=== PATIENT | male | born 1945 | race Caucasian/White ===

== ENCOUNTER 2017-05-03 15:01 | Emergency (ER) | payer MEDICARE, OTHER ==
[~2017-05-03] VITALS: Ht 182.9 cm; Wt 92.1 kg
[2017-05-03] MEDS ORDERED: [UNRECOGNIZED DRUG - OTHER] (15:44)
[2017-05-03] MEDS ORDERED: ASPIRIN 81 MG CHEW (CHILDREN'S ASA) PO ONE (16:15)
--- NOTE | 2017-05-03 16:16 | ED General ---
General Chief Complaint: General Problems/Pain Stated Complaint: COUGH,BODY ACHES,CHEST TIGHTNESS Nursing Triage Note: AMB TO ROOM REPORTS HAD FLU SYMPTOMS SINCE TUESDAY CON'T TO FEEL WEAK AND TIRED. THIS AM HAD PAIN ACROSS HIS CHEST. NON SINCE. PATIENT CONCERN THAT HE CON'T TO BE TIRED. Nursing Sepsis Screen: No Definite Risk Source of Information: Patient Exam Limitations: No Limitations History of Present Illness Time Seen by Provider: 16:07 Initial Comments Here with report of left-sided chest pain that lasted a few minutes earlier today. Was diagnosed with flu last Tuesday and has been treated for that. He has been coughing quite a bit. States that he continues to be tired. Denies nausea or vomiting. Does admit to coughing and easy fatigue. Seen by PCP today who recommended that he come over for evaluation including EKG. Timing/Duration: 4-5 Days, Other (chest pain only lasted for a few minutes and was an aching pain anterior left-sided without radiation to other areas.) Severity: Moderate Associated Systoms: Chest Pain, Cough, Fever/Chills, Malaise, No Rash Allergies and Home Medications Allergies Coded Allergies: No Known Drug Allergies (Unverified , 05/03/17) Home Medications [Mrloxicam] , (Reported) Constitutional: see HPI, chills, fever, malaise, weakness EENTM: nose congestion, throat pain Respiratory: cough, short of breath Cardiovascular: chest pain, No edema Gastrointestinal: No abdominal pain, No nausea, No vomiting Genitourinary: no symptoms reported Musculoskeletal: see HPI, No joint pain, muscle pain Skin: no symptoms reported All Other Systems Reviewed Negative Unless Noted: Yes Past Feculeg-Iqiryx-Kwycct Hx Patient Social History Alcohol Use: Denies Use Recreational Drug Use: No Smoking Status: Never a Smoker Recent Foreign Travel: No Contact w/Someone Who Travel: No Recent Infectious Disease Expo: No Surgeries History of Surgeries: No Respiratory History of Respiratory Disorde: No Cardiovascular History of Cardiac Disorders: No Neurological History of Neurological Disord: No Genitourinary History of Genitourinary Disor: No Gastrointestinal History of Gastrointestinal Di: No Musculoskeletal History of Musculoskeletal Dis: Yes Musculoskeletal Disorders: Arthritis Endocrine History of Endocrine Disorders: No HEENT History of HEENT Disorders: No Cancer History of Cancer: No Psychosocial History of Psychiatric Problem: No Integumentary History of Skin or Integumenta: No Reviewed Nursing Assessment Reviewed/Agree w Nursing PMH: Yes Physical Exam Vital Signs Vital Sign - Last 12Hours 05/03/17 15:18 Temp 98.0 Pulse 85 Resp 18 B/P (MAP) 131/85 (100) Pulse Ox 97 O2 Delivery Room Air Capillary Refill : Less Than 3 Seconds General Appearance: No Apparent Distress, WD/WN HEENT: PERRL/EOMI, Pharynx Normal Neck: Non Tender, Supple Respiratory: Lungs Clear, Normal Breath Sounds Cardiovascular: Regular Rate, Rhythm, No Murmur Gastrointestinal: Non Tender, Soft Back: Normal Inspection, No CVA Tenderness, No Vertebral Tenderness Extremity: Normal Range of Motion, Non Tender Neurologic/Psychiatric: Alert, Oriented x3 Skin: Normal Color, Warm/Dry Progress/Results/Core Measures Suspected Sepsis Recent Fever Within 48 Hours: No Infection Criteria Present: None New/Unexplained Altered Menta: No Sepsis Screen: No Definite Risk Sepsis Diagnosis: SIRS Temperature:98.0 Pulse: 85 Respiratory Rate: 18 Laboratory Tests 05/03/17 16:30: White Blood Count 4.1L Blood Pressure 131 /85 Mean: 100 Laboratory Tests 05/03/17 16:30: Creatinine 0.97, Platelet Count 151, Total Bilirubin 0.4 Results/Orders Lab Results Laboratory Tests Test 05/03/17 16:30 Range/Units White Blood Count 4.1 L 4.3-11.0 10^3/uL Red Blood Count 5.08 4.35-5.85 10^6/uL Hemoglobin 15.6 13.3-17.7 G/DL Hematocrit 44 40-54 % Mean Corpuscular Volume 87 80-99 FL Mean Corpuscular Hemoglobin 31 25-34 PG Mean Corpuscular Hemoglobin Concent 35 32-36 G/DL Red Cell Distribution Width 13.1 10.0-14.5 % Platelet Count 151 130-400 10^3/uL Mean Platelet Volume 9.3 7.4-10.4 FL Neutrophils (%) (Auto) 66 42-75 % Lymphocytes (%) (Auto) 20 12-44 % Monocytes (%) (Auto) 12 0-12 % Eosinophils (%) (Auto) 2 0-10 % Basophils (%) (Auto) 0 0-10 % Neutrophils # (Auto) 2.7 1.8-7.8 X 10^3 Lymphocytes # (Auto) 0.8 L 1.0-4.0 X 10^3 Monocytes # (Auto) 0.5 0.0-1.0 X 10^3 Eosinophils # (Auto) 0.1 0.0-0.3 10^3/uL Basophils # (Auto) 0.0 0.0-0.1 10^3/uL Sodium Level 138 135-145 MMOL/L Potassium Level 3.9 3.6-5.0 MMOL/L Chloride Level 105 98-107 MMOL/L Carbon Dioxide Level 23 21-32 MMOL/L Anion Gap 10 5-14 MMOL/L Blood Urea Nitrogen 21 H 7-18 MG/DL Creatinine 0.97 0.60-1.30 MG/DL Estimat Glomerular Filtration Rate > 60 BUN/Creatinine Ratio 22 Glucose Level 107 H 70-105 MG/DL Calcium Level 8.5 8.5-10.1 MG/DL Total Bilirubin 0.4 0.1-1.0 MG/DL Aspartate Amino Transf (AST/SGOT) 21 5-34 U/L Alanine Aminotransferase (ALT/SGPT) 23 0-55 U/L Alkaline Phosphatase 82 40-136 U/L Troponin I < 0.30 <0.30 NG/ML Total Protein 6.3 L 6.4-8.2 GM/DL Albumin 3.8 3.2-4.5 GM/DL My Orders Orders - COTY LUND MD Cbc With Automated Diff (05/03/17 16:11) Comprehensive Metabolic Panel (05/03/17 16:11) Troponin I (05/03/17 16:11) Chest Pa/Lat (2 View) (05/03/17 16:11) Ekg Tracing (05/03/17 16:11) Aspirin Chewable Tablet (Baby Aspirin Ch (05/03/17 16:15) Medications Given in ED Current Medications Medications Dose Ordered Sig/Hope Route Start Time Stop Time Status Last Admin Dose Admin Aspirin 324 mg ONCE ONCE PO 05/03/17 16:15 05/03/17 16:16 DC 05/03/17 16:34 324 MG Vital Signs/I&O Vital Sign - Last 12Hours 05/03/17 15:18 Temp 98.0 Pulse 85 Resp 18 B/P (MAP) 131/85 (100) Pulse Ox 97 O2 Delivery Room Air Capillary Refill : Less Than 3 Seconds Blood Pressure Mean: 100 Progress Note : Progress Note Seen and evaluated. Labs, EKG and chest x-ray ordered. ASA 324 mg by mouth given due to report of chest pain. Monitor patient. 1710: No acute findings. Discharged home with return precautions. Patient verbalize understanding instructions and agreement with plan. Patient was instructed to follow-up with his primary care doctor as well as seek cardiology consult as he has never had cardiology evaluation. Patient reported understanding. ECG Initial ECG Impression Date: May 03, 2017 Initial ECG Impression Time: 16:32 Initial ECG Rate: 86 Initial ECG Rhythm: Normal Sinus Initial ECG Comparisson: No Previous ECG Available Comment Sinus rhythm with borderline left axis deviation. No evidence of ST elevation OR. No previous available for comparison. Interpreted by me. Diagnostic Imaging Diagonstic Imaging: Xray Plain Films/CT/US/NM/MRI: chest Comments NAME: GINETTE CONNOLLY MED REC#: [id number] PT STATUS: REG ER : 1945 PHYSICIAN: COTY LUND MD ADMIT DATE: 05/03/17/ER Signed Date of Exam: 05/03/17 CHEST PA/LAT (2 VIEW) INDICATION: Chest pain and chills. PA and lateral views of the chest are obtained. COMPARISON: No previous study is available for comparison at this time. FINDINGS: Heart size and pulmonary vasculature are within normal limits, and the lungs are clear, bilaterally. IMPRESSION: Unremarkable chest. Dictated by: Dictated on workstation # [id number] Dict: 05/03/17 1649 Trans: 05/03/17 1701 Interpreted by: MARIANNA IBANEZ MD Electronically signed by: MARIANNA IBANEZ MD 05/03/17 1701 Departure Impression Impression: Primary Impression: Upper respiratory infection Qualified Codes: J06.9 - Acute upper respiratory infection, unspecified Additional Impression: Chest pain Qualified Codes: R07.9 - Chest pain, unspecified Disposition: 01 HOME, SELF-CARE Condition: Improved Departure-Patient Inst. Decision time for Depature: 17:14 Referrals: TATYANA JURADO MD FACP [facility] Rafa HAWKINS MD, BASHAR J MD SEGLIE, FLOYD R MD (PCP/Family) Primary Care Physician Patient Instructions: Chest Pain (DC), Flu, Adult (DC) Add. Discharge Instructions: All discharge instructions reviewed with patient and/or family. Voiced understanding. Continue home medications as directed. He may also take Tylenol 1000 mg every 6 or 8 hours. Drink plenty of fluids and get plenty of rest. Follow-up with your doctor this week for recheck and further evaluation. You should seek appointment with Dr. Zuluaga or one of the other cardiologists listed for follow- up to have further evaluation regarding chest pain in your heart. Return for worse pain, fever, vomiting, weakness, breathing problems or other concerns as needed. Copy Copies To 1: SERGIO PATEL MD, TIMOTHY D MD May 03, 2017 16:16
[2017-05-03 16:39] LABS: BASOPHILS % (AUTO) 0 % (0-10); EOSINOPHILS # (AUTO) 0.1 10^3/uL (0.0-0.3); EOSINOPHILS % (AUTO) 2 % (0-10); HEMATOCRIT 44 % (40-54); HEMOGLOBIN 15.6 G/DL (13.3-17.7); LYMPHOCYTES # (AUTO) 0.8 X 10^3 (1.0-4.0); LYMPHOCYTES % (AUTO) 20 % (12-44); MEAN CORPUSCULAR HEMOGLOBIN 31 PG (25-34); MEAN CORPUSCULAR HGB CONC 35 G/DL (32-36); MEAN CORPUSCULAR VOLUME 87 FL (80-99); MEAN PLATELET VOLUME 9.3 FL (7.4-10.4); MONOCYTES # (AUTO) 0.5 X 10^3 (0.0-1.0); MONOCYTES % (AUTO) 12 % (0-12); NEUTROPHILS # (AUTO) 2.7 X 10^3 (1.8-7.8); NEUTROPHILS % (AUTO) 66 % (42-75); PLATELET COUNT 151 10^3/uL (130-400); RED BLOOD COUNT 5.08 10^6/uL (4.35-5.85); RED CELL DISTRIBUTION WIDTH 13.1 % (10.0-14.5); WHITE BLOOD COUNT 4.1 10^3/uL (4.3-11.0)
--- NOTE | 2017-05-03 16:52 | Diagnostic Imaging Report ---
INDICATION: Chest pain and chills. PA and lateral views of the chest are obtained. COMPARISON: No previous study is available for comparison at this time. FINDINGS: Heart size and pulmonary vasculature are within normal limits, and the lungs are clear, bilaterally. IMPRESSION: Unremarkable chest. Dictated by: Dictated on workstation # [id number]
[2017-05-03 16:58] LABS: ALANINE AMINOTRANSFERASE 23 U/L (0-55); ALBUMIN 3.8 GM/DL (3.2-4.5); ALKALINE PHOSPHATASE 82 U/L (40-136); BILIRUBIN,TOTAL 0.4 MG/DL (0.1-1.0); BUN/CREATININE RATIO 22; CALCIUM 8.5 MG/DL (8.5-10.1); CARBON DIOXIDE 23 MMOL/L (21-32); CHLORIDE 105 MMOL/L (98-107); CREATININE SERUM 0.97 MG/DL (0.60-1.30); GFR ESTIMATED > 60; GLUCOSE 107 MG/DL (70-105); POTASSIUM 3.9 MMOL/L (3.6-5.0); SODIUM 138 MMOL/L (135-145); TOTAL PROTEIN 6.3 GM/DL (6.4-8.2)
[2017-05-03 17:41] VITALS: BP 134/91
--- OUTSIDE RECORDS SUMMARY | 2017-05-04 11:05 | XMS REPORT ---
Author Author FROYLAN BONILLA [facility] Address Unknown Care Team Providers Care Condominium Manager Name Role Phone FROYLAN BONILLA Unavailable PROBLEMS Type Condition ICD9-CM Code [id number] Code Onset Dates Condition Status SNOMED Code Problem Encounter for dental examination Z01.20 Active [id number] ALLERGIES No Known Allergies SOCIAL HISTORY Never Assessed PLAN OF CARE Activity Details Follow Up prn Reason:PROPHY VITAL SIGNS Blood pressure systolic 132 mmHg 2016-06-01 Blood pressure diastolic 77 mmHg 2016-06-01 MEDICATIONS Medication Instructions Dosage Frequency Start Date End Date Duration Status Meloxicam Active RESULTS No Results PROCEDURES Procedure Date Ordered Result Body Site LTD ORAL EVALUATION - PROBLEM FOCUS Jun 01, 2016 INTRAORL-PERIAPICAL 1 FILM [id number] Jun 01, 2016 IMMUNIZATIONS No Known Immunizations MEDICAL (GENERAL) HISTORY Type Description Date Medical History Arthritis
--- OUTSIDE RECORDS SUMMARY | 2017-05-04 11:05 | XMS REPORT ---
Author Author AMINA PATTON [facility] Address [address] [place] [address] Phone Unavailable Care Team Providers Care Cv Rn Name Role Phone AMINA PATTON Unavailable Unavailable PROBLEMS Type Condition ICD9-CM Code [id number] Code Onset Dates Condition Status SNOMED Code Problem Encounter for dental examination Z01.20 Active [id number] ALLERGIES No Known Allergies SOCIAL HISTORY Never Assessed PLAN OF CARE Activity Details Follow Up kenzie Reason:srp VITAL SIGNS Blood pressure systolic 113 mmHg 2016-08-25 Blood pressure diastolic 70 mmHg 2016-08-25 MEDICATIONS Medication Instructions Dosage Frequency Start Date End Date Duration Status Meloxicam Active RESULTS No Results PROCEDURES Procedure Date Ordered Result Body Site Periodontal scaling and root August 25, 2016 Periodontal scaling and root August 25, 2016 IMMUNIZATIONS No Known Immunizations MEDICAL (GENERAL) HISTORY Type Description Date Medical History Arthritis
== END 2017-05-03 17:41 | disposition home or self-care (01) ==
LOC: EDUNIT# 15:01 → ER 15:04
DX: J06.9 Acute upper respiratory infection, unspecified (principal); R07.89 Other chest pain
CPT/HCPCS: 36415; 71046; 80053; 84484; 85025; 93005

== ENCOUNTER → 2017-05-25 | Outpatient (CLI) | payer MEDICARE, OTHER ==
[~2017-05-25] MED LIST: CATHETER FLUSH 10 ML SYR IV PRN; IOHEXOL 350 MG/ML 150 ML (OMNIPAQUE 350) VIAL IV ONE; NS 250 ML (IVPB) BAG IV ONE; [UNRECOGNIZED DRUG - OTHER]
--- NOTE | 2017-05-25 15:18 | Diagnostic Imaging Report ---
PROCEDURE: CT angiography of the chest with contrast. TECHNIQUE: Multiple contiguous axial images were obtained through the chest after uneventful bolus administration of intravenous contrast. Reconstructed CTA MIP acquisitions were also performed. INDICATION: Upper chest pain and shortness of air. No prior studies are available for comparison. FINDINGS: Evaluation of the pulmonary arterial system is without evidence of thromboembolism. No filling defects are identified within the central, lobar or segmental arterial branches. The thoracic aorta is normal caliber. No dissection is seen. No pericardial or pleural fluid is identified. No axillary, hilar or mediastinal lymphadenopathy is detected. No pulmonary infiltrates, nodules or masses are seen. The upper abdomen is unremarkable. IMPRESSION: No evidence of pulmonary embolism or thoracic aortic dissection. Dictated by: Dictated on workstation # [id number]
== END ==
LOC: RAD 14:35
PROVIDERS: ATTEND Internal Medicine Interventional Cardiology
DX: R07.9 Chest pain, unspecified (principal); R06.02 Shortness of breath; R00.0 Tachycardia, unspecified
CPT/HCPCS: 71275

== ENCOUNTER → 2017-05-26 | Outpatient (CLI) | payer MEDICARE, OTHER ==
[~2017-05-26] VITALS: Ht 182.9 cm; Wt 93.0 kg
[~2017-05-26] MED LIST changes: -IOHEXOL 350 MG/ML 150 ML (OMNIPAQUE 350) VIAL IV ONE; -NS 250 ML (IVPB) BAG IV ONE; +REGADENOSON 0.4 MG/5 ML SYR (LEXISCAN) IV ONE
[2017-05-27 13:26] VITALS: BP 143/73
--- NOTE | 2017-05-27 13:26 | Cardiology Stress Test Report ---
Stress Test Report Type of NM Stress Test: Test Type: LEXISCAN 0.4MG/5ML Date of Procedure/Referring: Date of Procedure: May 26, 2017 PCP Rafa Jones MD Admitting Physician Steven Carter MD Indications: Chest pain Baseline Heart Rate: 79 Baseline Blood Pressure: Blood Pressure Systolic: 143 Blood Pressure Diastolic: 73 Baseline EKG: Baseline EKG: sinus rhythm Summary: This is a 71-year-old gentleman who was brought to the stress lab after informed consent was taken. Lexiscan stress test was performed according to the protocol. 0.4 mg of Lexiscan was given IV. Low-grade exercise was performed. Baseline EKG showed sinus rhythm at 79 bpm and blood pressure 143/ 73 mmHg. Maximum heart rate 136 bpm and blood pressure 195/98 mmHg. Patient did not have any chest pain, EKG changes or arrhythmias. 10.93 mCi of Myoview was given for rest imaging and 31.3 mCi of Myoview was given for stress imaging. TID 1.01. EF 61 percent. Normal wall motion. Normal perfusion during rest and stress imaging. Conclusion: Pharmacological nuclear stress test is negative for ischemia. Hypertensive during the stress test. Normal perfusion imaging during stress and rest. Normal LV function with no wall motion abnormalities. Rafa JONES MD May 27, 2017 13:26
== END ==
LOC: CARD 07:25
PROVIDERS: ATTEND Internal Medicine Interventional Cardiology
DX: R07.9 Chest pain, unspecified (principal); I10 Essential (primary) hypertension; R06.02 Shortness of breath; R00.0 Tachycardia, unspecified
CPT/HCPCS: 78452; 93017

== ENCOUNTER 2017-09-16 10:15 | Emergency (ER) | payer MEDICARE, OTHER ==
[~2017-09-16] VITALS: Ht 180.3 cm; Wt 92.1 kg
[~2017-09-16 10:15] MED LIST changes: -CATHETER FLUSH 10 ML SYR IV PRN; -REGADENOSON 0.4 MG/5 ML SYR (LEXISCAN) IV ONE
--- OUTSIDE RECORDS SUMMARY | 2017-09-16 10:18 | XMS REPORT ---
Author Author FROYLAN BONILLA [facility] Address Unknown Care Team Providers Care Traveling Representative Name Role Phone FROYLAN BONILLA Unavailable PROBLEMS Unknown Problems ALLERGIES No Known Allergies ENCOUNTERS Encounter Location Date Diagnosis [facility] [id number] [place] [address] [id number] Oct, Dental examination Z01.20 [facility] [id number] [place] [address] [id number] Sep, Encounter for dental examination Z01.20 [facility] [id number] [place] [address] [id number] August, Dental examination Z01.20 [facility] [id number] [place] [address] [phone] Jun, Dental examination Z01.20 [facility] [id number] [place] [address] [phone] May, Dental examination Z01.20 IMMUNIZATIONS No Known Immunizations SOCIAL HISTORY Never Assessed REASON FOR VISIT restorative PLAN OF CARE Activity Details Follow Up 4 Months Reason:recall VITAL SIGNS Blood pressure systolic 160 mmHg 2016-11-16 Blood pressure diastolic 78 mmHg 2016-11-16 MEDICATIONS Medication Instructions Dosage Frequency Start Date End Date Duration Status Meloxicam Active RESULTS No Results PROCEDURES Procedure Date Ordered Result Body Site RESIN COMPOS - 3 SURFACES POSTERIOR November 16, 2016 INSTRUCTIONS MEDICATIONS ADMINISTERED No Known Medications MEDICAL (GENERAL) HISTORY Type Description Date Medical History Arthritis
[2017-09-16 10:43] LABS: BASOPHILS % (AUTO) 0 % (0-10); EOSINOPHILS % (AUTO) 1 % (0-10); HEMATOCRIT 36 % (40-54); HEMOGLOBIN 12.6 G/DL (13.3-17.7); LYMPHOCYTES # (AUTO) 0.6 X 10^3 (1.0-4.0); LYMPHOCYTES % (AUTO) 7 % (12-44); MEAN CORPUSCULAR HEMOGLOBIN 31 PG (25-34); MEAN CORPUSCULAR HGB CONC 35 G/DL (32-36); MEAN CORPUSCULAR VOLUME 88 FL (80-99); MEAN PLATELET VOLUME 9.1 FL (7.4-10.4); MONOCYTES # (AUTO) 0.5 X 10^3 (0.0-1.0); MONOCYTES % (AUTO) 6 % (0-12); NEUTROPHILS # (AUTO) 7.4 X 10^3 (1.8-7.8); NEUTROPHILS % (AUTO) 87 % (42-75); PLATELET COUNT 190 10^3/uL (130-400); RED BLOOD COUNT 4.13 10^6/uL (4.35-5.85); RED CELL DISTRIBUTION WIDTH 13.3 % (10.0-14.5); WHITE BLOOD COUNT 8.6 10^3/uL (4.3-11.0)
[2017-09-16] MEDS: NS IV 1000 ML 1,000 ML IV ONE ×2 (10:51→11:40)
[2017-09-16 11:08] LABS: INR 1.2 (0.8-1.4); PROTHROMBIN TIME PATIENT 15.5 SEC (12.2-14.7)
[2017-09-16 11:13] LABS: EOSINOPHILS % (MANUAL) 1 %; LYMPHOCYTES % (MANUAL) 5 %; MONOCYTES % (MANUAL) 6 %; NEUTROPHILS % (MANUAL) 88 %
[2017-09-16 11:14] LABS: RBC MORPH NORMAL
--- NOTE | 2017-09-16 11:16 | Diagnostic Imaging Report ---
EXAMINATION: CHEST (PA AND LATERAL) CLINICAL INDICATION: 71-year-old male, tachycardia. History of recent total knee replacement. COMPARISON: 05/13/2017. CT chest 05/25/2017. FINDINGS: Stable overall appearance of the cardiomediastinal silhouette. There is no identified pneumothorax. There is no pleural effusion. There is no identified focal airspace consolidation. There are degenerative changes of the thoracic spine. IMPRESSION: 1. No identified acute cardiopulmonary abnormality. Dictated by: Dictated on workstation # [id number]
[2017-09-16 11:20] LABS: ALANINE AMINOTRANSFERASE 17 U/L (0-55); ALBUMIN 3.6 GM/DL (3.2-4.5); ALKALINE PHOSPHATASE 92 U/L (40-136); BUN/CREATININE RATIO 12; CARBON DIOXIDE 22 MMOL/L (21-32); CHLORIDE 107 MMOL/L (98-107); CREATININE SERUM 0.93 MG/DL (0.60-1.30); GFR ESTIMATED > 60; GLUCOSE 171 MG/DL (70-105); POTASSIUM 3.6 MMOL/L (3.6-5.0); SODIUM 138 MMOL/L (135-145); TOTAL PROTEIN 6.5 GM/DL (6.4-8.2)
[2017-09-16 11:43] LABS: BILIRUBIN,URINE NEGATIVE (NEGATIVE); CLARITY,URINE CLEAR; COLOR,URINE YELLOW; GLUCOSE, URINE (UA) 2+ (NEGATIVE); KETONES,URINE NEGATIVE (NEGATIVE); LEUKOCYTE ESTERASE ,URINE NEGATIVE (NEGATIVE); NITRITE,URINE NEGATIVE (NEGATIVE); PH,URINE 7 (5-9); PROTEIN,URINE 2+ (NEGATIVE); UROBILINOGEN,URINE NORMAL (NORMAL)
[2017-09-16 11:51] LABS: BACTERIA,URINE NEGATIVE /HPF; RBC,URINE 0-2 /HPF
--- NOTE | 2017-09-16 12:05 | Diagnostic Imaging Report ---
PROCEDURE: US left lower extremity venous. TECHNIQUE: Multiple real-time grayscale images were obtained over the left lower extremity in various projections. Additional duplex Doppler and color Doppler images were also obtained. INDICATION: Pain and swelling to the left leg. Patient status post total knee replacement 3 days ago. There is no evidence of a left lower extremity DVT. Left lower extremity deep venous system demonstrates normal compressibility with normal response to augmentation and Valsalva. No fluid collection or mass is seen. IMPRESSION: No evidence of left lower extremity DVT. Dictated by: Dictated on workstation # [id number]
--- NOTE | 2017-09-16 12:35 | ED General ---
General Chief Complaint: Cardiac/General Problems Stated Complaint: ELEVATED HEART RATE Nursing Triage Note: PT TO ED 8 PT STATES SENT TO ED BY HH RN FOR TACHYCARDIA, PT STATES WAS RELEASED FROM [facility] YESTERDAY S/P L TKR. PT DENIES C/P AT THIS X. PT HAS BANDAGE INTACT ON L KNEE, L KNEE SWOLLEN, DENIES FEVER. PT DENIES SOA Nursing Sepsis Screen: No Definite Risk Source of Information: Patient Exam Limitations: No Limitations History of Present Illness Date Seen by Provider: September 16, 2017 Time Seen by Provider: 10:25 Initial Comments This 71-year-old gentleman presents to emergency room with concerns for tachycardia noted by his home health nurse. He reportedly had a heart rate in the 140s at home and was directed to the ER by his nurse. Patient had a left total knee replacement performed by Dr. Jacobson at [facility] on September 13. He reports a minimal increase in pain. He denies any fever, cough, urinary problems, diarrhea, vomiting, constipation, chest pain, or shortness of breath. Patient reports having a recent cardiac workup performed by Dr. Casetllanos and states there were no significant abnormalities noted. Allergies and Home Medications Allergies Coded Allergies: No Known Drug Allergies (Unverified , 05/03/17) Patient Home Medication List Home Medication List Reviewed: Yes Review of Systems Constitutional: no symptoms reported EENTM: no symptoms reported Respiratory: no symptoms reported Cardiovascular: see HPI Gastrointestinal: no symptoms reported Genitourinary: no symptoms reported Musculoskeletal: see HPI Skin: see HPI Psychiatric/Neurological: No Symptoms Reported Hematologic/Lymphatic: No Symptoms Reported Immunological/Allergic: no symptoms reported Past Hftqbks-Pseorw-Qwqqmz Hx Past Med/Social Hx: Reviewed Nursing Past Med/Soc Hx Patient Social History Alcohol Use: Denies Use Recreational Drug Use: No Smoking Status: Never a Smoker Recent Foreign Travel: No Contact w/Someone Who Travel: No Recent Infectious Disease Expo: No Recent Hopitalizations: Yes (L TKR) Physical Abuse: No Sexual Abuse: No Past Medical History Surgeries: Yes Joint Replacement (left total knee) Respiratory: No Cardiac: No Neurological: No Genitourinary: No Gastrointestinal: No Musculoskeletal: Yes Arthritis Endocrine: No HEENT: No Cancer: No Psychosocial: No Nursing Suicide Risk Score: 0 Integumentary: No Family Medical History No Pertinent Family Hx Physical Exam Vital Signs Vital Signs - First Documented 09/16/17 10:15 Temp 97.6 Pulse 122 Resp 19 B/P (MAP) 142/86 (104) Pulse Ox 95 Capillary Refill : Less Than 3 Seconds General Appearance: No Apparent Distress, WD/WN HEENT: PERRL/EOMI, Normal ENT Inspection Neck: Normal Inspection Respiratory: Lungs Clear, Normal Breath Sounds, No Accessory Muscle Use, No Respiratory Distress Cardiovascular: No Edema, No Murmur, Tachycardia Gastrointestinal: Normal Bowel Sounds, Non Tender, Soft Extremity: Normal Capillary Refill, Non Tender, No Calf Tenderness (negative Tarun), Swelling (swelling about the left knee. Erythema extending from the upper calf region up to the medial thigh to the groin), Other (right lower extremity unremarkable) Neurologic/Psychiatric: Alert, Oriented x3, No Motor/Sensory Deficits, Normal Mood/Affect, parent trainer II-XII Norm as Tested Skin: Warm/Dry, Erythema Focused Exam Lactate Level 09/16/17 10:30: Lactic Acid Level 1.53 Lactic Acid Level Laboratory Tests Test 09/16/17 10:30 Lactic Acid Level 1.53 MMOL/L (0.50-2.00) Progress/Results/Core Measures Suspected Sepsis Recent Fever Within 48 Hours: No Infection Criteria Present: None New/Unexplained Altered Menta: No Sepsis Screen: No Definite Risk SIRS Temperature:97.6 Pulse: 122 Respiratory Rate: 19 Laboratory Tests 09/16/17 10:30: White Blood Count 8.6 Blood Pressure 142 /86 Mean: 104 09/16/17 10:30: Lactic Acid Level 1.53 Laboratory Tests 09/16/17 10:30: Creatinine 0.93, INR Comment 1.2, Platelet Count 190, Total Bilirubin 1.0 Results/Orders Lab Results Laboratory Tests Test 09/16/17 10:30 09/16/17 11:34 Range/Units White Blood Count 8.6 4.3-11.0 10^3/uL Red Blood Count 4.13 L 4.35-5.85 10^6/uL Hemoglobin 12.6 L 13.3-17.7 G/DL Hematocrit 36 L 40-54 % Mean Corpuscular Volume 88 80-99 FL Mean Corpuscular Hemoglobin 31 25-34 PG Mean Corpuscular Hemoglobin Concent 35 32-36 G/DL Red Cell Distribution Width 13.3 10.0-14.5 % Platelet Count 190 130-400 10^3/uL Mean Platelet Volume 9.1 7.4-10.4 FL Neutrophils (%) (Auto) 87 H 42-75 % Lymphocytes (%) (Auto) 7 L 12-44 % Monocytes (%) (Auto) 6 0-12 % Eosinophils (%) (Auto) 1 0-10 % Basophils (%) (Auto) 0 0-10 % Neutrophils # (Auto) 7.4 1.8-7.8 X 10^3 Lymphocytes # (Auto) 0.6 L 1.0-4.0 X 10^3 Monocytes # (Auto) 0.5 0.0-1.0 X 10^3 Eosinophils # (Auto) 0.0 0.0-0.3 10^3/uL Basophils # (Auto) 0.0 0.0-0.1 10^3/uL Neutrophils % (Manual) 88 % Lymphocytes % (Manual) 5 % Monocytes % (Manual) 6 % Eosinophils % (Manual) 1 % Blood Morphology Comment NORMAL Prothrombin Time 15.5 H 12.2-14.7 SEC INR Comment 1.2 0.8-1.4 Activated Partial Thromboplast Time 39 H 24-35 SEC Sodium Level 138 135-145 MMOL/L Potassium Level 3.6 3.6-5.0 MMOL/L Chloride Level 107 98-107 MMOL/L Carbon Dioxide Level 22 21-32 MMOL/L Anion Gap 9 5-14 MMOL/L Blood Urea Nitrogen 11 7-18 MG/DL Creatinine 0.93 0.60-1.30 MG/DL Estimat Glomerular Filtration Rate > 60 BUN/Creatinine Ratio 12 Glucose Level 171 H 70-105 MG/DL Lactic Acid Level 1.53 0.50-2.00 MMOL/L Calcium Level 9.0 8.5-10.1 MG/DL Total Bilirubin 1.0 0.1-1.0 MG/DL Aspartate Amino Transf (AST/SGOT) 18 5-34 U/L Alanine Aminotransferase (ALT/SGPT) 17 0-55 U/L Alkaline Phosphatase 92 40-136 U/L Total Protein 6.5 6.4-8.2 GM/DL Albumin 3.6 3.2-4.5 GM/DL Urine Color YELLOW Urine Clarity CLEAR Urine pH 7 5-9 Urine Specific [place] 1.005 L 1.016-1.022 Urine Protein 2+ H NEGATIVE Urine Glucose (UA) 2+ H NEGATIVE Urine Ketones NEGATIVE NEGATIVE Urine Nitrite NEGATIVE NEGATIVE Urine Bilirubin NEGATIVE NEGATIVE Urine Urobilinogen NORMAL NORMAL MG/DL Urine Leukocyte Esterase NEGATIVE NEGATIVE Urine RBC (Auto) 2+ H NEGATIVE Urine RBC 0-2 /HPF Urine WBC NONE /HPF Urine Squamous Epithelial Cells 2-5 /HPF Urine Crystals NONE /LPF Urine Bacteria NEGATIVE /HPF Urine Casts NONE /LPF Urine Mucus NEGATIVE /LPF Urine Culture Indicated NO My Orders Orders - THEO MALIK MD Cbc With Automated Diff (09/16/17 10:30) Comprehensive Metabolic Panel (09/16/17 10:30) Lactic Acid Analyzer (09/16/17 10:30) Blood Culture (09/16/17 10:30) Sputum Culture (09/16/17 10:30) Ua Culture If Indicated (09/16/17 10:30) Protime With Inr (09/16/17 10:30) Partial Thromboplastin Time (09/16/17 10:30) O2 (09/16/17 10:30) Saline Lock/Iv-Start (09/16/17 10:30) Saline Lock/Iv-Start (09/16/17 10:30) Vital Signs Adult Sepsis Patie Q1H (09/16/17 10:30) Remove Rings In Anticipation O (09/16/17 10:30) Saline Lock/Iv-Start (09/16/17 10:30) Ns Iv 1000 Ml (Sodium Chloride 0.9%) (09/16/17 10:30) Chest Pa/Lat (2 View) (09/16/17 10:30) Manual Differential (09/16/17 10:30) Ekg Tracing (09/16/17 10:48) Monitor-Rhythm Ecg Trace Only (09/16/17 10:48) Us Venous Lower Ext Lt (09/16/17 11:03) Ns Iv 1000 Ml (Sodium Chloride 0.9%) (09/16/17 11:18) Ceftriaxone Injection (Rocephin Injectio (09/16/17 12:30) Vancomycin Injection (Vancomycin Injecti (09/16/17 12:30) Medications Given in ED Current Medications Medications Dose Ordered Sig/Hope Route Start Time Stop Time Status Last Admin Dose Admin Ceftriaxone Sodium 1000 mg/ Sodium Chloride 50 ml @ 200 mls/hr ONCE ONCE IV 09/16/17 12:30 09/16/17 12:44 DC 09/16/17 12:37 200 MLS/HR Sodium Chloride 1,000 ml @ 0 mls/hr Q0M ONCE IV 09/16/17 10:30 09/16/17 10:32 DC 09/16/17 10:51 1,000 MLS/HR Sodium Chloride 1,000 ml @ 0 mls/hr Q0M ONCE IV 09/16/17 11:18 09/16/17 11:19 DC 09/16/17 11:40 1,000 MLS/HR Vital Signs/I&O 09/16/17 10:15 Temp 97.6 Pulse 122 Resp 19 B/P (MAP) 142/86 (104) Pulse Ox 95 Capillary Refill : Less Than 3 Seconds Blood Pressure Mean: 104 Progress Note #1: Time: 12:29 Progress Note Patient patient remains persistently tachycardic despite 2 L of IV normal saline.. Despite no fever or leukocytosis, I am concerned that he is developing sepsis due to the persistent tachycardia with no other explanation. Area of warmth and erythema hasn't expanded even since arrival to the ER. Ultrasound of the left lower extremity was negative for DVT. I've left a message with [facility] one call to arrange transfer. Transfer is being sought for 2 reasons. Patient's surgeon is at [facility] and this facility as on admission diversion. Rocephin and vancomycin have been ordered for initial treatment of suspected postoperative infection. Progress Note #2: Time: 12:35 Progress Note Case was discussed with Dr. Mathis at [facility] as orthopedist on-call. He would like to confer with Dr. Jacobson and return the call. He asked to withhold any antibiotics until further discussion sinus do not interfere with joint culture. Progress Note #3: Time: 12:44 Progress Note Case was discussed with the Dr. Jacobson. He requested no antibiotics be given. Rocephin had already been administered by nursing staff and by the time of my discussion with Dr. Mathis. Vancomycin will be held until further instructions from Dr. Jacobson. Dr. Jacobson will present to the emergency room to assess the patient himself. Progress Note #4: Time: 13:[address] Jacobson did present to the emergency room and assessed the patient. Disposition was discussed. I reiterated my concern about the tachycardia without explanation and spreading erythema about the knee. Dr. Jacobson did agree to help arrange for admission to [facility]. Patient was insistent on being transferred by private vehicle. Risks of doing so were discussed with patient and he expressed understanding. Patient was allowed to transfer by private vehicle. ECG Initial ECG Impression Date: September 16, 2017 Initial ECG Impression Time: 10:21 Initial ECG Rate: 119 Initial ECG Rhythm: S.Tach Comment Sinus tachycardia with no ST elevation or depression. No abnormal intervals or axis deviation. Diagnostic Imaging Diagonstic Imaging: Xray Plain Films/CT/US/NM/MRI: chest Comments Chest x-ray viewed by me and report reviewed. See report below: NAME: GINETTE CONNOLLY MED REC#: [id number] PT STATUS: REG ER : 1945 PHYSICIAN: THEO MALIK MD ADMIT DATE: 09/16/17/ER Signed Date of Exam: 09/16/17 CHEST PA/LAT (2 VIEW) EXAMINATION: CHEST (PA AND LATERAL) CLINICAL INDICATION: 71-year-old male, tachycardia. History of recent total knee replacement. COMPARISON: 05/13/2017. CT chest 05/25/2017. FINDINGS: Stable overall appearance of the cardiomediastinal silhouette. There is no identified pneumothorax. There is no pleural effusion. There is no identified focal airspace consolidation. There are degenerative changes of the thoracic spine. IMPRESSION: 1. No identified acute cardiopulmonary abnormality. Dictated by: Dictated on workstation # [id number] Dict: 09/16/17 1111 Trans: 09/16/17 1130 Interpreted by: LINDA ORELLANA MD Electronically signed by: LINDA ORELLANA MD 09/16/17 1130 Diagonstic Imaging: Ultrasound Plain Films/CT/US/NM/MRI: leg Comments Ultrasound of the left lower extremity report reviewed. See report below: NAME: GINETTE CONNOLLY MED REC#: [id number] PT STATUS: REG ER : 1945 PHYSICIAN: THEO MALIK MD ADMIT DATE: 09/16/17/ER Draft Date of Exam:09/16/17 US VENOUS LOWER EXT LT PROCEDURE: US left lower extremity venous. TECHNIQUE: Multiple real-time grayscale images were obtained over the left lower extremity in various projections. Additional duplex Doppler and color Doppler images were also obtained. INDICATION: Pain and swelling to the left leg. Patient status post total knee replacement 3 days ago. There is no evidence of a left lower extremity DVT. Left lower extremity deep venous system demonstrates normal compressibility with normal response to augmentation and Valsalva. No fluid collection or mass is seen. IMPRESSION: No evidence of left lower extremity DVT. Dictated on workstation # [id number] Dict: 09/16/17 1201 Trans: 09/16/17 1205 [facility] [id number] Interpreted by: OSIRIS TEIXEIRA MD Departure Impression Primary Impression: Post op infection Qualified Codes: T81.4XXA - Infection following a procedure, initial encounter Additional Impressions: Cellulitis Qualified Codes: L03.116 - Cellulitis of left lower limb Sinus tachycardia Disposition: SHT-TRM HOSP Condition: Stable Departure-Patient Inst. Referrals: SERGIO PATEL MD (PCP/Family) Primary Care Physician THEO MALIK MD September 16, 2017 12:35
[2017-09-16] MEDS: cefTRIAXone INJECTION 1,000 MG in NS (IVPB) 50 ML IV ONE (12:37)
[2017-09-16] MEDS: VANCOMYCIN INJECTION 1,000 MG in NS (IVPB) 250 ML IV ONE (12:37)
[2017-09-16 14:14] VITALS: BP 164/94
== END 2017-09-16 14:16 | disposition short-term general hospital (02) ==
LOC: ER 10:15 → EDUNIT# 10:15 → ER 14:16
DX: T81.4XXA Infection following a procedure, initial encounter (principal); L03.90 Cellulitis, unspecified; R00.0 Tachycardia, unspecified
CPT/HCPCS: 36415; 71046; 80053; 81000; 83605; 85007; 85027; 85610; 85730; 87040; 93005; 93041; 96361; 96374

== ENCOUNTER 2017-11-17 09:30 | Outpatient (RCR) | payer MEDICARE, OTHER | END 2017-11-17 09:57 | disposition home or self-care (01) | PROVIDERS: ATTEND Orthopaedic Surgery | DX: Z47.1 Aftercare following joint replacement surgery (principal); Z96.652 Presence of left artificial knee joint ==